=== PATIENT | male | born 1965 | race African-American/Black ===

== ENCOUNTER → 2018-06-06 | Outpatient (CLI) | payer OTHER ==
[~2018-06-06] MED LIST: ASPIRIN EC325 M1 PO; CARVEDILOL12.5 MG PO; EFFIENT10 MG PO; LIPITOR40 MG PO; LISINOPRIL10 MG PO; LOW DOSE ASPIRI81 M1 PO; NORCO 5-325 TA1 EACH PO
[2018-06-06 14:19] LABS: CHOLESTEROL 171 mg/dL (<200); HDL CHOLESTEROL 32 mg/dL (>40); LDL CHOLESTEROL 73 mg/dL (<100); SGOT 30 U/L (15-37); SGPT 65 U/L (30-65); TC:HDL 5.3 Ratio (Not establshd); TRIGLYCERIDE 334 mg/dL (<150); VLDL 67 mg/dL (<40)
[2018-06-06 14:23] LABS: SERUM ASSESSMENT Clear
[2018-06-06 18:06] LABS: TESTOSTERONE 238 ng/dL (264-916)
== END ==
LOC: M.LAB 13:43
PROVIDERS: Internal Medicine Cardiovascular Disease
DX: E78.00 Pure hypercholesterolemia, unspecified (principal); R53.83 Other fatigue

== ENCOUNTER → 2018-07-30 | Outpatient (CLI) | payer OTHER ==
[2018-07-30 18:06] LABS: TESTOSTERONE 273 ng/dL (264-916)
[2018-08-01 02:07] LABS: FREE TESTOSTERONE 12.2 pg/mL (7.2-24.0)
== END ==
LOC: M.LAB 12:58
PROVIDERS: Family Medicine
DX: E29.1 Testicular hypofunction (principal)

== ENCOUNTER 2018-10-27 11:49 | Emergency (ER) | payer OTHER ==
[~2018-10-27] VITALS: Ht 175.3 cm; Wt 94.5 kg
[2018-10-27] MEDS ORDERED: HYDROCHLOROTHIA25 M2 PO (12:01)
[2018-10-27] MEDS ORDERED: COZAAR 25 MG TA25 M1 PO (12:01)
[2018-10-27] MEDS ORDERED: CRESTOR20 MG PO (12:01)
[2018-10-27] MEDS ORDERED: TOPROL XL25 MG PO (12:01)
[2018-10-27 12:20] LABS: ABSOLUTE BASOPHILS 0.1 thou/uL (0.0-0.2); ABSOLUTE EOSINOPHILS 0.1 thou/uL (0.0-0.7); ABSOLUTE LYMPHOCYTES 2.1 thou/uL (0.8-5.3); ABSOLUTE MONOCYTES 0.4 thou/uL (0.0-1.2); ABSOLUTE NEUTROPHILS 4.3 thou/uL (1.6-8.1); BASOPHILS 0.8 %; EOSINOPHILS 0.8 %; HEMATOCRIT 39.3 % (42.0-52.0); HEMOGLOBIN 13.2 gm/dL (14.0-18.0); LYMPHOCYTES 30.1 %; MCHC 33.6 g/dL (28.0-37.0); MCV 89.4 fL (80.0-100.0); MONOCYTES 6.4 %; MPV 8.7 fl. (7.2-11.1); NUCLEATED RBCS 0 /100WBC; PLATELET COUNT* 198 thou/uL (150-400); POLYS 61.9 %; RBC 4.39 mil/uL (4.50-6.00); RDW-CV 13.2 % (10.5-14.5)
[2018-10-27 12:41] LABS: ALBUMIN 3.9 g/dL (3.4-5.0); CALCIUM 9.2 mg/dL (8.5-10.1); CREATININE 1.7 mg/dL (0.6-1.3); POTASSIUM 3.8 mmol/L (3.5-5.1); TOTAL PROTEIN 8.1 g/dL (6.4-8.2)
[2018-10-27 13:41] LABS: URINE BILIRUBIN NEGATIVE (Negative); URINE BLOOD NEGATIVE (Negative); URINE CLARITY CLEAR; URINE COLOR YELLOW; URINE GLUCOSE-RANDOM 1+ (Negative); URINE KETONES NEGATIVE (Negative); URINE LEUKOCYTES-REFLEX NEGATIVE (Negative); URINE NITRITE-REFLEX NEGATIVE (Negative); URINE PROTEIN NEGATIVE (Negative); URINE UROBILINOGEN 0.2 E.U./dl (0.2-1.0)
[2018-10-27] MEDS ORDERED: CARAFATE 1 GM TA1 GM PO (14:19)
[2018-10-27] MEDS ORDERED: NORCO 5-325 TA1 EACH PO (14:19)
[2018-10-27] MEDS ORDERED: ZOFRAN ODT4 MG PO (14:19)
[2018-10-27 14:29] VITALS: BP 173/105
== END 2018-10-27 14:30 | disposition home or self-care (01) ==
LOC: M.ERS 11:49
PROVIDERS: Personal Emergency Response Attendant
DX: K85.90 Acute pancreatitis without necrosis or infection, unspecified (principal); I10 Essential (primary) hypertension; E78.5 Hyperlipidemia, unspecified; Z95.5 Presence of coronary angioplasty implant and graft

== ENCOUNTER 2020-05-21 15:59 | Inpatient (IN) | payer OTHER ==
[~2020-05-21] VITALS: Ht 175.3 cm; Wt 86.9 kg
[~2020-05-21 15:59] MED LIST changes: +CARAFATE 1 GM TA1 GM PO; +COZAAR 25 MG TA25 M1 PO; +CRESTOR20 MG PO; +HYDROCHLOROTHIA25 M2 PO; +TOPROL XL25 MG PO; +ZOFRAN ODT4 MG PO
[2020-05-21 16:03] VITALS: BP 129/99
[2020-05-21 16:49] LABS: ABSOLUTE BASOPHILS 0.1 thou/uL (0.0-0.2); ABSOLUTE EOSINOPHILS 0.2 thou/uL (0.0-0.7); ABSOLUTE LYMPHOCYTES 2.1 thou/uL (0.8-5.3); ABSOLUTE MONOCYTES 0.6 thou/uL (0.0-1.2); ABSOLUTE NEUTROPHILS 6.4 thou/uL (1.6-8.1); BASOPHILS 0.6 %; EOSINOPHILS 1.8 %; HEMATOCRIT 41.3 % (42.0-52.0); HEMOGLOBIN 14.1 gm/dL (14.0-18.0); LYMPHOCYTES 22.4 %; MCH 30.3 pg (26.0-34.0); MCHC 34.1 g/dL (28.0-37.0); MCV 88.9 fL (80.0-100.0); MPV 8.9 fl. (7.2-11.1); NUCLEATED RBCS 0 /100WBC; PLATELET COUNT* 200 thou/uL (150-400); POLYS 69.2 %; RBC 4.65 mil/uL (4.50-6.00); RDW-CV 12.7 % (10.5-14.5); WBC 9.3 thou/uL (4.0-11.0)
[2020-05-21 16:57] LABS: CALCIUM 9.9 mg/dL (8.5-10.1); CREATININE 2.5 mg/dL (0.6-1.3); POTASSIUM 4.2 mmol/L (3.5-5.1)
[2020-05-21 17:02] LABS: ALBUMIN 4.5 g/dL (3.4-5.0)
[2020-05-21 23:16] VITALS: BP 149/90
[2020-05-22 03:56] VITALS: BP 106/72
[2020-05-22 07:25] LABS: CALCIUM 8.6 mg/dL (8.5-10.1); POTASSIUM 4.1 mmol/L (3.5-5.1)
[2020-05-22 07:27] LABS: MAGNESIUM 1.4 mg/dL (1.8-2.4); PHOSPHORUS* 2.8 mg/dL (2.5-4.9)
[2020-05-22 07:28] LABS: URINE BILIRUBIN NEGATIVE (Negative); URINE BLOOD NEGATIVE (Negative); URINE CLARITY CLEAR; URINE COLOR YELLOW; URINE GLUCOSE-RANDOM 2+ (Negative); URINE KETONES 1+ (Negative); URINE LEUKOCYTES-REFLEX NEGATIVE (Negative); URINE NITRITE-REFLEX NEGATIVE (Negative); URINE PROTEIN NEGATIVE (Negative); URINE SPECIFIC GRAVITY 1.015 (1.005-1.030); URINE UROBILINOGEN 0.2 E.U./dl (0.2-1.0)
[2020-05-22 07:40] VITALS: BP 100/75
[2020-05-22 07:45] LABS: AMP/METHAMP Negative (Negative); BARBITURATES Negative (Negative); BENZODIAZEPINES Negative (Negative); COCAINE Negative (Negative); METHADONE Negative (Negative); OPIATES Negative (Negative); PCP Negative (Negative); THC Negative (Negative)
[2020-05-22 09:20] LABS: CHOLESTEROL 149 mg/dL (<200); HDL CHOLESTEROL 28 mg/dL (>40); LDL CHOLESTEROL 64 mg/dL (<100); SERUM ASSESSMENT Clear; TC:HDL 5.3 Ratio (Not establshd); TRIGLYCERIDE 285 mg/dL (<150); VLDL 57 mg/dL (<40)
--- NOTE | 2020-05-22 09:48 | EKG ---
[place] [address] ELECTROCARDIOGRAM REPORT Name: LIZANDROSABRINA SR Room: [place] [address] ADM IN [facility].#: [id number] Admission: 05/21/20 Attend Phys: Tristian Calvert Discharge: Date of : 61 Date of Service: 05/21/20 1715 Report #: [id number] THIS REPORT FOR: //name// [facility] ED Test Date: 2020-05-21 Test Time: 17:15:10 Pat Name: SABRINA BONE Department: Room: [facility] Gender: M [employer]: JG : 1965 Requested By: Fredrick Mendoza Order Number: [id number] MD: Margarito Man Measurements Intervals [place] Rate: 100 P: 61 ND: 131 QRS: 25 QRSD: 84 T: 76 QT: 331 QTc: 427 Interpretive Statements Sinus tachycardia Compared to ECG 08/28/2012 08:10:27 Sinus bradycardia no longer present Left ventricular hypertrophy no longer present ST (T wave) deviation no longer present Possible ischemia no longer present Electronically Signed On 05-22-2020 9:48:36 CDT by Margarito aMn [email or web address] <ELECTRONICALLY SIGNED> By: Margarito Man MD, FACC 05/22/20 0948 14 14 Maragrito Man MD, FACC /EPI
[2020-05-22 11:59] VITALS: BP 112/69
[2020-05-22 14:15] VITALS: BP 112/69
[2020-05-22 14:45] VITALS: BP 108/63
[2020-05-22 20:00] VITALS: BP 114/76
[2020-05-23 00:46] VITALS: BP 103/65
[2020-05-23 04:00] VITALS: BP 115/72
[2020-05-23 05:02] LABS: HEMATOCRIT 32.5 % (42.0-52.0); MCH 30.7 pg (26.0-34.0); MCHC 34.7 g/dL (28.0-37.0); MCV 88.5 fL (80.0-100.0); MPV 8.8 fl. (7.2-11.1); RBC 3.68 mil/uL (4.50-6.00); RDW-CV 12.5 % (10.5-14.5); WBC 6.8 thou/uL (4.0-11.0)
[2020-05-23 05:07] LABS: GLYCOHEMOGLOBIN (HGB A1C) 13.4 % (4.8-5.6)
[2020-05-23 05:31] LABS: HEMOGLOBIN 11.3 gm/dL (14.0-18.0)
[2020-05-23 05:50] LABS: ALBUMIN 3.2 g/dL (3.4-5.0); CALCIUM 8.2 mg/dL (8.5-10.1); CREATININE 1.5 mg/dL (0.6-1.3); MAGNESIUM 1.4 mg/dL (1.8-2.4); POTASSIUM 3.4 mmol/L (3.5-5.1); TOTAL BILIRUBIN 1.5 mg/dL (<0.1-1.0); TOTAL PROTEIN 6.8 g/dL (6.4-8.2)
[2020-05-23 08:00] VITALS: BP 105/64
[2020-05-23 11:50] VITALS: BP 128/70
[2020-05-23 16:00] VITALS: BP 121/75
[2020-05-23 20:00] VITALS: BP 119/79
[2020-05-24 00:22] VITALS: BP 109/64
[2020-05-24 04:30] VITALS: BP 128/86
[2020-05-24 05:30] LABS: HEMATOCRIT 33.5 % (42.0-52.0); HEMOGLOBIN 11.3 gm/dL (14.0-18.0); MCH 30.2 pg (26.0-34.0); MCHC 33.8 g/dL (28.0-37.0); MCV 89.4 fL (80.0-100.0); MPV 8.8 fl. (7.2-11.1); RBC 3.74 mil/uL (4.50-6.00); RDW-CV 12.6 % (10.5-14.5); WBC 7.5 thou/uL (4.0-11.0)
[2020-05-24 06:03] LABS: CALCIUM 8.4 mg/dL (8.5-10.1); CREATININE 1.5 mg/dL (0.6-1.3); MAGNESIUM 2.1 mg/dL (1.8-2.4); POTASSIUM 3.4 mmol/L (3.5-5.1); TOTAL BILIRUBIN 1.2 mg/dL (<0.1-1.0); TOTAL PROTEIN 7.2 g/dL (6.4-8.2)
[2020-05-24 08:00] VITALS: BP 120/73
[2020-05-24 12:00] VITALS: BP 118/67
[2020-05-24 16:00] VITALS: BP 110/75
[2020-05-24 19:45] VITALS: BP 133/90
[2020-05-25 04:00] VITALS: BP 109/69
[2020-05-25 05:41] LABS: CALCIUM 9.1 mg/dL (8.5-10.1); CREATININE 1.5 mg/dL (0.6-1.3); MAGNESIUM 1.9 mg/dL (1.8-2.4)
[2020-05-25 05:49] LABS: POTASSIUM 4.4 mmol/L (3.5-5.1)
[2020-05-25 14:27] VITALS: BP 122/81
[2020-05-25 20:00] VITALS: BP 109/58
[2020-05-26] VITALS: BP 109/67
[2020-05-26 04:00] VITALS: BP 113/71
[2020-05-26 08:00] VITALS: BP 105/78
[2020-05-26 10:52] VITALS: BP 105/78
[2020-05-26] MEDS ORDERED: METFORMIN HCL500 M1 PO (11:00)
[2020-05-26 12:22] VITALS: BP 105/78
== END 2020-05-26 12:20 | disposition home or self-care (01) | DRG 438 ==
LOC: M.ERS 15:59 → M.2W 18:40 → M.TBA-ER 18:40 → M.2W 05-22 14:35
PROVIDERS: Family Medicine; Internal Medicine; Physician Assistant; ADMIT Internal Medicine; ATTEND Internal Medicine
DX: K85.90 Acute pancreatitis without necrosis or infection, unspecified (principal); N17.0 Acute kidney failure with tubular necrosis; R65.10 Systemic inflammatory response syndrome (SIRS) of non-infectious origin without acute organ dysfunction; I12.9 Hypertensive chronic kidney disease with stage 1 through stage 4 chronic kidney disease, or unspecified chronic kidney disease; E11.22 Type 2 diabetes mellitus with diabetic chronic kidney disease; E87.6 Hypokalemia; E83.42 Hypomagnesemia; N18.2 Chronic kidney disease, stage 2 (mild); E78.5 Hyperlipidemia, unspecified; E11.65 Type 2 diabetes mellitus with hyperglycemia; Z20.828 Contact with and (suspected) exposure to other viral communicable diseases; Z79.899 Other long term (current) drug therapy

== ENCOUNTER → 2020-06-12 | Outpatient (CLI) | payer OTHER ==
[~2020-06-12] MED LIST changes: +METFORMIN HCL500 M1 PO
--- NOTE | 2020-06-12 17:14 | CARDNUC ---
[place] [address] CARDIAC NUCLEAR IMAGING REPORT Name: SABRINA BONE Room: [facility]#: [id number] Admission: 06/12/20 Attend Phys: Cody Brownlee MD Discharge: Date of : 61 Date of Service: 06/12/20 1714 Report #: [id number] THIS REPORT FOR: cc: Santi Escobar MD, Michael D. MD Liston, Michael J. MD [facility] ~ APPROVED REPORT Study performed: 06/12/2020 15:44:40 Exam: Nuclear Stress Test Indication: CAD s/p PCI Patient Location: Out-Patient Stress Tech: Alyce Vidales Stress Nurse: Karlie Moya RN Ht: 5 ft 10 in Wt: 190 lbs BSA: 2.04 m2 BMI: 27.25 Medical History Medical History: CAD s/p PA, CAD s/p stent, HTN, Hyperlipidemia Medications: asa 81, losartan, metoprolol, crestor Allergies: No known drug allergies Cardiac Risk Factors: Age, HTN, Hyperlipidemia, Tobacco History (Former) Previous Cardiac Procedures: Myocardial infarction, PCI Exercise History: Physically active Meds Held (24 hrs): metoprolol Stress Test Details Stress Test: Pharmacologic stress testing performed using 0.4 mg of regadenoson per 5 mL given IV over 10 seconds. Reason for pharmacologic stress test: HTN. HR Resting HR: 76 bpm Max Heart Rate (APMHR): 163 bpm Max HR Achieved: 113 bpm Target HR (85% APMHR): 138 bpm % of APMHR: 69 Recovery HR: 94 bpm BP Resting BP: 200/120 mmHg Max BP: 189/103 [place] [address] CARDIAC NUCLEAR IMAGING REPORT Name: LIZANDROSABRINA KIM SR Room: [facility]#: [id number] Admission: 06/12/20 Attend Phys: Cody Brownlee MD Discharge: Date of : 61 Date of Service: 06/12/20 1714 Report #: [id number] Resting ECG: Sinus Rhythm Stress ECG: Sinus Tachycardia ST Change: None Arrhythmia: None Recovery ECG: Sinus Rhythm Recovery ST Change: None Recovery Arrhythmia: None Clinical Reason for Termination: Completed protocol The patient tolerated Lexiscan infusion without significant cardiac symptoms. Nurse Comments pt bp too high to put on treadmill. switched to deshawn per dr brownlee Stress ECG Conclusion Baseline twelve-lead EKG shows sinus rhythm without significant ST segment depression. EKGs obtained during and post Lexiscan infusion show sinus rhythm and sinus tachycardia with no significant ST segment depression when compared to baseline. There were no significant stress-induced arrhythmias. NM EXAM: Myocardial Perfusion REST/STRESS Resting Data Rest SPECT myocardial perfusion imaging was performed in supine position 30 minutes following the intravenous injection of 11.0 mCi of Tc-99m Sestamibi. Time of rest injection: 1410 The images were gated to evaluate regional wall motion and calculate left ventricular ejection fraction. Administration Route: IV Administration Site: Left AC Pharmacologic Stress Pharmacologic stress test was performed by injecting Regadenoson 0.4 mg IV push followed by the intravenous injection of 32.1 mCi of Tc-99m Sestamibi. Time of stress injection: 1545 Administration Route: IV Administration Site: Left AC Heart Rate at time of stress injection: [address] [place] [address] CARDIAC NUCLEAR IMAGING REPORT Name: LIZANDROSABRINA Miguel SR Room: [facility]#: [id number] Admission: 06/12/20 Attend Phys: Cody Brownlee MD Discharge: Date of : 61 Date of Service: 06/12/20 1714 Report #: [id number] Gated Stress SPECT was performed 45 minutes after stress injection. The images were gated to evaluate regional wall motion and calculate left ventricular ejection fraction. Prone imaging was performed. Study Quality Study: Good Artifact: Mild Diaphragmatic artifact Study Data At rest, the left ventricular ejection fraction was 63%.. Post stress, the left ventricular ejection was 65%.. TID = 1.00. Perfusion Perfusion images obtained in the supine position at rest and post Lexiscan stress show mild photopenia in the inferior wall that resolves completely with post-rest prone imaging suggesting diaphragmatic attenuation artifact. No other significant fixed or reversible defects were identified. Wall Motion Normal left ventricular wall motion. Nuclear Conclusion ECG Findings: negative for ischemia Clinical Findings: negative for ischemia Nuclear Findings: negative for ischemia Exercise Capacity: not assessed Left Ventricular Function: normal Risk Study: low Perfusion study show no defect to suggest infarct or ischemia. Left ventricular systolic function appears normal on gated studies. This is a low risk study. <Conclusion> Baseline twelve-lead EKG shows sinus rhythm without significant ST segment depression. EKGs obtained during and post Lexiscan infusion show sinus rhythm and sinus tachycardia with no significant ST segment depression when compared to baseline. There were no significant stress-induced arrhythmias. <ELECTRONICALLY SIGNED> By: Santi Peter MD, FACC 06/12/201713 13 13 Santi Peter MD, FACC /INF
== END ==
LOC: M.NUC 06-05 13:00
PROVIDERS: ATTEND Internal Medicine Cardiovascular Disease
DX: I25.10 Atherosclerotic heart disease of native coronary artery without angina pectoris (principal)